=== PATIENT | male | born 1960 | race American Indian/Alaskan Native ===

== ENCOUNTER 2022-02-27 16:47 | Inpatient (IN) | payer MEDICARE, OTHER ==
[~2022-02-27] VITALS: Ht 182.9 cm; Wt 140.2 kg
--- NOTE | 2022-02-28 06:37 | EKG ---
[facility] [address] [facility] [place] [address] Signed Sinus rhythm with short CA with frequent and consecutive premature ventricular complexes with junctional escape complexes Left axis deviation Nonspecific intraventricular block Inferior infarct , age undetermined Anterolateral infarct , age undetermined Abnormal ECG No previous ECGs available Confirmed by RUDY LYLES MD ([id number]) on 02/28/2022 6:36:48 AM Electronically Signed By: RUDY LYLES MD 02/28/22 0637 PATIENT NAME: MANJULA DAVIDSON Electrocardiogram DATE OF : 56 PHYSICIAN: RUDY LYLES MD REPORT #: [id number] REPORT IS CONFIDENTIAL AND NOT TO BE RELEASED WITHOUT AUTHORIZATION
[2022-02-28] MEDS ORDERED: ZYLOPRIM100 MG PO (13:28)
[2022-02-28] MEDS ORDERED: AMITRIPTYLINE H10 MG PO (13:29)
[2022-02-28] MEDS ORDERED: LO-DOSE ASPIRIN81 MG PO (13:29)
[2022-02-28] MEDS ORDERED: CILOSTAZOL50 MG PO (13:30)
[2022-02-28] MEDS ORDERED: DIGOX125 MCG PO (13:30)
[2022-02-28] MEDS ORDERED: VITAMIN D21250 MCG PO (13:31)
[2022-02-28] MEDS ORDERED: ENTRESTO 24 MG1 EACH PO (13:31)
[2022-02-28] MEDS ORDERED: LEVOTHYROXINE75 MC1 PO (13:32)
[2022-02-28] MEDS ORDERED: FERROUS SULFAT325 M2 PO (13:32)
[2022-02-28] MEDS ORDERED: JARDIANCE10 MG PO (13:33)
[2022-02-28] MEDS ORDERED: METOPROLOL SUCC50 MG PO (13:33)
[2022-02-28] MEDS ORDERED: FISH OIL CONC1000 M1 PO (13:33)
[2022-02-28] MEDS ORDERED: TORSEMIDE20 MG PO (13:34)
[2022-02-28] MEDS ORDERED: SIMVASTATIN40 MG PO (13:34)
[2022-02-28] MEDS ORDERED: WARFARIN SODIUM5 MG PO (13:35)
[2022-02-28] MEDS ORDERED: WARFARIN SODIUM1 MG PO (13:36)
[2022-03-05] MEDS ORDERED: SODIUM BICARBO650 MG PO (10:32)
[2022-03-05] MEDS ORDERED: CLINDAMYCIN HC300 MG PO (10:34)
== END 2022-03-05 14:55 | disposition home or self-care (01) | DRG 871 ==
LOC: ED 16:47 → MS 20:01 → CCU 20:01 → MS 03-03 21:55
PROVIDERS: ADMIT Internal Medicine; ATTEND Internal Medicine
PROC: 3E03329 Introduction of Other Anti-infective into Peripheral Vein, Percutaneous Approach (ICD-10-PCS; principal; 2022-02-27)
PROC: 3E033XZ Introduction of Vasopressor into Peripheral Vein, Percutaneous Approach (ICD-10-PCS; 2022-02-27)
DX: A40.0 Sepsis due to streptococcus, group A (principal); G93.41 Metabolic encephalopathy; N17.9 Acute kidney failure, unspecified; I48.20 Chronic atrial fibrillation, unspecified; I42.9 Cardiomyopathy, unspecified; L03.115 Cellulitis of right lower limb; L03.116 Cellulitis of left lower limb; I50.22 Chronic systolic (congestive) heart failure; E87.2 Acidosis; L97.421 Non-pressure chronic ulcer of left heel and midfoot limited to breakdown of skin; Z20.822 Contact with and (suspected) exposure to COVID-19; E11.621 Type 2 diabetes mellitus with foot ulcer; E11.22 Type 2 diabetes mellitus with diabetic chronic kidney disease; R65.20 Severe sepsis without septic shock; N18.9 Chronic kidney disease, unspecified; E11.628 Type 2 diabetes mellitus with other skin complications; E11.51 Type 2 diabetes mellitus with diabetic peripheral angiopathy without gangrene; E86.0 Dehydration; I95.9 Hypotension, unspecified; R11.2 Nausea with vomiting, unspecified; R19.7 Diarrhea, unspecified; Z95.810 Presence of automatic (implantable) cardiac defibrillator; Z91.011 Allergy to milk products; Z79.01 Long term (current) use of anticoagulants; Z79.82 Long term (current) use of aspirin; Z79.899 Other long term (current) drug therapy
CPT/HCPCS: 36415; 51702; 71045; 74176; 80048; 80053; 80202; 81001; 82570; 83036; 83605; 83880; 83930; 83935; 84300; 85025; 85060; 85610; 85730; 86850; 86900; 86901; 87040; 87077; 87186; 87502; 93005; 93010; 97110; 97162; 99285-25; A9270; C9113; C9803; J0692; J0696; J1815; J1940; J2405; J3370; J7030; J7040; J7060; U0003

== ENCOUNTER 2022-07-27 15:18 | Emergency (ER) | payer MEDICARE, OTHER ==
[~2022-07-27] VITALS: Ht 182.9 cm; Wt 127.0 kg
[~2022-07-27 15:18] MED LIST: AMITRIPTYLINE H10 MG PO; CILOSTAZOL50 MG PO; CLINDAMYCIN HC300 MG PO; DIGOX125 MCG PO; ENTRESTO 24 MG1 EACH PO; FERROUS SULFAT325 M2 PO; FISH OIL CONC1000 M1 PO; JARDIANCE10 MG PO; LEVOTHYROXINE75 MC1 PO; LO-DOSE ASPIRIN81 MG PO; METOPROLOL SUCC50 MG PO; SIMVASTATIN40 MG PO; SODIUM BICARBO650 MG PO; TORSEMIDE20 MG PO; VITAMIN D21250 MCG PO; WARFARIN SODIUM1 MG PO; WARFARIN SODIUM5 MG PO; ZYLOPRIM100 MG PO
--- OUTSIDE RECORDS SUMMARY | 2022-07-27 15:24 | XMS ---
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 Naima has no Care Guidelines for this patient. Osvaldo VISIT COUNT (12 MO.) 1 [facility] (ID) 4 [facility] [address] [facility] [place] TOTAL 8 NOTE: Visits indicate total known visits. ED/UCC VISIT TRACKING (12 MO.) 07/27/2022 15:19 [facility] [place] TYPE: Emergency COMPLAINT: - LOW BLOOD SUGAR, WEAK, SHAKY, COLD, VOMITING,COUGH 06/14/2022 12:27 [facility] [place] TYPE: Emergency COMPLAINT: - SHOB DIAGNOSES: - Severe sepsis without septic shock - Cardiac arrest, cause unspecified - Sepsis, unspecified organism - Shortness of breath - Chronic kidney disease, unspecified - Contact with and (suspected) exposure to COVID-19 - Other senior care (current) drug therapy - Allergy to milk products - termite treater helper (current) use of aspirin - End stage heart failure [facility] [place] [facility] COMPLAINT: - fall 04/14/2022 20:[facility] [place] [facility] COMPLAINT: - blood sugar low DIAGNOSES: - Type 2 diabetes mellitus with hypoglycemia without coma 04/07/2022 21:09 [facility] TYPE: Emergency COMPLAINT: - SWOLLEN TESTICAL DIAGNOSES: - Fluid overload, unspecified 03/16/2022 08:10 [facility] [place] ([place]) TYPE: Emergency COMPLAINT: - SOB/VOMITING DIAGNOSES: 1. Shortness of breath 2. Acute kidney failure, unspecified 3. Hypertensive heart disease with heart failure 4. Unspecified atrial fibrillation 5. termite treater helper (current) use of anticoagulants 6. Presence of cardiac pacemaker 7. termite treater helper (current) use of insulin 8. Hyperlipidemia, unspecified 9. Ischemic cardiomyopathy 10. Personal history of malignant neoplasm of testis 11. Type 2 diabetes mellitus with hypoglycemia without coma 12. Heart failure, unspecified 13. Hyperkalemia 14. Acidosis 15. termite treater helper (current) use of aspirin 03/07/2022 22:28 [facility] TYPE: Emergency COMPLAINT: - back pain after fall this AM DIAGNOSES: - Low back pain, unspecified 02/27/2022 16:48 [facility] [place] TYPE: Emergency COMPLAINT: - ALTERED LOC INPATIENT VISIT TRACKING (12 MO.) 06/14/2022 21:29 [facility] [place] TYPE: General Medicine DIAGNOSES: - Cardiac arrest, cause unspecified - ROSC post cardiac arrest, sepsis 04/24/2022 15:12 [facility] TYPE: Inpatient COMPLAINT: - fall DIAGNOSES: - Other hypotension - Other hypotension - Secondary hyperparathyroidism of renal origin - Muscle weakness (generalized) - Fluid overload, unspecified - Hypotension, unspecified - Dependence on renal dialysis - End stage renal disease - Chronic systolic (congestive) heart failure - Fluid overload, unspecified - Nephrotic syndrome with unspecified morphologic changes - Chronic systolic (congestive) heart failure - End stage renal disease - Secondary hyperparathyroidism of renal origin - Hypotension, unspecified - Dependence on renal dialysis - Nephrotic syndrome with unspecified morphologic changes 03/16/2022 18:23 [facility] DIAGNOSES: - Chronic kidney disease, stage 4 (severe) - End stage renal disease - Dependence on renal dialysis - Type 2 diabetes mellitus with hypoglycemia without coma - Type 2 diabetes mellitus with hyperglycemia - Non-pressure chronic ulcer of other part of left foot with other specified severity - Chronic combined systolic (congestive) and diastolic (congestive) heart failure - Acute kidney failure, unspecified - Other fluid overload - Type 2 diabetes mellitus with foot ulcer - Hyperkalemia - alf (current) use of insulin - Non-pressure chronic ulcer of other part of unspecified foot with unspecified severity - Unspecified atrial fibrillation 02/27/2022 20:01 [facility] [place] TYPE: Medical Surgical COMPLAINT: - SEPSIS DIAGNOSES: - Cellulitis of left lower limb - Allergy to milk products - Cellulitis of left lower limb - Non-pressure chronic ulcer of left heel and midfoot limited to breakdown of skin - Sepsis due to streptococcus, group A - Acute kidney failure, unspecified - Severe sepsis without septic shock - Cardiomyopathy, unspecified - Nausea with vomiting, unspecified - Chronic kidney disease, unspecified - Type 2 diabetes mellitus with other skin complications - Chronic systolic (congestive) heart failure - Nausea with vomiting, unspecified - Presence of automatic (implantable) cardiac defibrillator - Diarrhea, unspecified - alf (current) use of aspirin - Hypotension, unspecified - Hypotension, unspecified - Dehydration - Cellulitis of right lower limb - Contact with and (suspected) exposure to COVID-19 - Chronic atrial fibrillation, unspecified - Other senior care (current) drug therapy - Other senior care (current) drug therapy - Allergy to milk products - termite treater helper (current) use of anticoagulants - Sepsis due to streptococcus, group A - Cellulitis of right lower limb - Chronic kidney disease, unspecified - Chronic systolic (congestive) heart failure - Dehydration - Metabolic encephalopathy - Diarrhea, unspecified - Type 2 diabetes mellitus with foot ulcer - Type 2 diabetes mellitus with diabetic peripheral angiopathy without gangrene - Type 2 diabetes mellitus with other skin complications - Cardiomyopathy, unspecified - Type 2 diabetes mellitus with diabetic peripheral angiopathy without gangrene - Acidosis - Contact with and (suspected) exposure to COVID-19 - Metabolic encephalopathy - Chronic atrial fibrillation, unspecified - Type 2 diabetes mellitus with diabetic chronic kidney disease - Sepsis, unspecified organism - termite treater helper (current) use of anticoagulants - Acute kidney failure, unspecified - termite treater helper (current) use of aspirin - Presence of automatic (implantable) cardiac defibrillator - Severe sepsis without septic shock [email or web address]
[2022-07-27] MEDS ORDERED: MIDODRINE HCL10 MG PO (15:56)
[2022-07-27] MEDS ORDERED: SEVELAMER HCL800 MG PO (15:57)
[2022-07-27] MEDS ORDERED: LANTUS100 UNITS/ SUB-Q (15:58)
[2022-07-27] MEDS ORDERED: CARVEDILOL3.125 MG PO (15:58)
[2022-07-27] MEDS ORDERED: LIPITOR20 MG PO (15:59)
[2022-07-27] MEDS ORDERED: ELIQUIS5 MG PO (15:59)
--- NOTE | 2022-07-30 18:22 | EKG ---
[facility] [address] [facility] [place] [address] Signed Atrial fibrillation with rapid ventricular response Left axis deviation Nonspecific intraventricular block Inferior infarct (cited on or before 27-FEB-2022) Anterolateral infarct (cited on or before 27-FEB-2022) Abnormal ECG When compared with ECG of 14-JUN-2022 15:12, Previous ECG has undetermined rhythm, needs review QRS duration has increased T wave inversion no longer evident in Anterior leads Confirmed by Yanira Bell MD () on 07/30/2022 6:22:28 PM Electronically Signed By: YANIRA BELL MD 07/30/221821 PATIENT NAME: MANJULA DAVIDSON Electrocardiogram DATE OF : 56 PHYSICIAN: YANIRA BELL MD REPORT #: [id number] REPORT IS CONFIDENTIAL AND NOT TO BE RELEASED WITHOUT AUTHORIZATION
== END 2022-07-28 09:44 | disposition short-term general hospital (02) ==
LOC: ED 15:18
PROC: 0JH60XZ Insertion of Tunneled Vascular Access Device into Chest Subcutaneous Tissue and Fascia, Open Approach (ICD-10-PCS; principal; 2022-07-27)
PROC: 0T9B70Z Drainage of Bladder with Drainage Device, Via Natural or Artificial Opening (ICD-10-PCS; 2022-07-27)
DX: A41.89 Other specified sepsis (principal); I48.91 Unspecified atrial fibrillation; G93.40 Encephalopathy, unspecified; N39.0 Urinary tract infection, site not specified; B97.4 Respiratory syncytial virus as the cause of diseases classified elsewhere; I10 Essential (primary) hypertension; E11.9 Type 2 diabetes mellitus without complications; Z20.822 Contact with and (suspected) exposure to COVID-19; Z91.011 Allergy to milk products; Z79.899 Other long term (current) drug therapy; Z79.4 Long term (current) use of insulin; Z79.82 Long term (current) use of aspirin; Z79.01 Long term (current) use of anticoagulants
CPT/HCPCS: 36415; 36556; 51701; 71045; 80053; 81001; 82803; 83605; 83880; 84484; 85025; 85610; 85730; 87040; 87088; 87502; 93005; 93010; 99285-25; A9270; C9803; J0692; J2250; J2270; J3370; J7121; U0003

== ENCOUNTER 2022-09-08 11:37 | Emergency (ER) | payer MEDICARE, OTHER ==
[~2022-09-08] VITALS: Ht 182.9 cm; Wt 127.3 kg
[~2022-09-08 11:37] MED LIST changes: +CARVEDILOL3.125 MG PO; +ELIQUIS5 MG PO; +LANTUS100 UNITS/ SUB-Q; +LIPITOR20 MG PO; +MIDODRINE HCL10 MG PO; +SEVELAMER HCL800 MG PO
--- OUTSIDE RECORDS SUMMARY | 2022-09-08 11:47 | XMS ---
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 Naima has no Care Guidelines for this patient. Osvaldo VISIT COUNT (12 MO.) 1 [facility] (ID) 4 [facility] [address] [facility] [address] [place] TOTAL 9 NOTE: Visits indicate total known visits. ED/UCC VISIT TRACKING (12 MO.) 09/08/2022 11:38 [facility] [place] TYPE: Emergency COMPLAINT: - CHEST PAIN 07/27/2022 15:19 [facility] [place] TYPE: Emergency COMPLAINT: - LOW BLOOD SUGAR, WEAK, SHAKY, COLD, VOMITING,COUGH DIAGNOSES: - Other termite technician (current) drug therapy - Type 2 diabetes mellitus without complications - Respiratory syncytial virus as the cause of diseases classified elsewhere - Weakness - Encephalopathy, unspecified - custodial (current) use of anticoagulants - Allergy to milk products - Other specified sepsis - Unspecified atrial fibrillation - custodial (current) use of insulin - parts counterman (current) use of aspirin - Contact with and (suspected) exposure to COVID-19 - Urinary tract infection, site not specified - Essential (primary) hypertension 06/14/2022 12:27 [facility] [place] TYPE: Emergency COMPLAINT: - SHOB DIAGNOSES: - End stage heart failure - Severe sepsis without septic shock - Cardiac arrest, cause unspecified - Sepsis, unspecified organism - Shortness of breath - Chronic kidney disease, unspecified - Contact with and (suspected) exposure to COVID-19 - Other termite technician (current) drug therapy - Allergy to milk products - parts counterman (current) use of aspirin 04/20/2022 09:[address] [facility] TYPE: Emergency COMPLAINT: - fall 04/14/2022 20:[address] [facility] TYPE: Emergency COMPLAINT: - blood sugar low DIAGNOSES: - Type 2 diabetes mellitus with hypoglycemia without coma 04/07/2022 21:[address] [facility] TYPE: Emergency COMPLAINT: - SWOLLEN TESTICAL DIAGNOSES: - Fluid overload, unspecified 03/16/2022 08:10 [facility] [place] ([place]) TYPE: Emergency COMPLAINT: - SOB/VOMITING DIAGNOSES: 1. Shortness of breath 2. Acute kidney failure, unspecified 3. Hypertensive heart disease with heart failure 4. Unspecified atrial fibrillation 5. custodial (current) use of anticoagulants 6. Presence of cardiac pacemaker 7. parts counterman (current) use of insulin 8. Hyperlipidemia, unspecified 9. Ischemic cardiomyopathy 10. Personal history of malignant neoplasm of testis 11. Type 2 diabetes mellitus with hypoglycemia without coma 12. Heart failure, unspecified 13. Hyperkalemia 14. Acidosis 15. parts counterman (current) use of aspirin 03/07/2022 22:[address] [facility] TYPE: Emergency COMPLAINT: - back pain after fall this AM DIAGNOSES: - Low back pain, unspecified 02/27/2022 16:48 [facility] TYPE: Emergency COMPLAINT: - ALTERED LOC INPATIENT VISIT TRACKING (12 MO.) 06/14/2022 21:[facility] [place] [place] TYPE: General Medicine DIAGNOSES: - Cardiac arrest, cause unspecified - ROSC post cardiac arrest, sepsis 04/24/2022 15:[address] [facility] TYPE: Inpatient COMPLAINT: - fall DIAGNOSES: - Hypotension, unspecified - Dependence on renal dialysis - Nephrotic syndrome with unspecified morphologic changes - Other hypotension - Other hypotension - [...] disease - Secondary hyperparathyroidism of renal origin 03/16/2022 18:[address] [place] TYPE: Oncology DIAGNOSES: - Non-pressure chronic ulcer of other part of unspecified foot with unspecified severity - Unspecified atrial fibrillation - Chronic kidney disease, stage 4 (severe) [...] mellitus with foot ulcer - Hyperkalemia - parts counterman (current) use of insulin 02/27/2022 20:01 [facility] [place] TYPE: Medical Surgical COMPLAINT: - SEPSIS DIAGNOSES: - Metabolic encephalopathy - Chronic atrial fibrillation, unspecified - Type 2 diabetes mellitus with diabetic chronic kidney disease - Sepsis, unspecified organism - parts counterman (current) use of anticoagulants - Acute kidney failure, unspecified - parts counterman (current) use of aspirin - Presence of automatic (implantable) cardiac defibrillator - Severe sepsis without septic shock - Cellulitis of left lower limb - [...] (implantable) cardiac defibrillator - Diarrhea, unspecified - custodial (current) use of aspirin - Hypotension, unspecified - Hypotension, unspecified - Dehydration - Cellulitis of right lower limb - Contact with and (suspected) exposure to COVID-19 - Chronic atrial fibrillation, unspecified - Other senior living (current) drug therapy - Other senior living (current) drug therapy - Allergy to milk products - parts counterman (current) use of anticoagulants - Sepsis due [...] Contact with and (suspected) exposure to COVID-19 [id number]
--- NOTE | 2022-09-09 20:42 | EKG ---
[facility] [address] [facility] [place] [address] Signed Atrial fibrillation with artifact Left axis deviation Nonspecific intraventricular block Inferior infarct , age undetermined Anterolateral infarct , age undetermined Abnormal ECG Confirmed by Yanira Bell MD () on 09/09/2022 8:41:52 PM Electronically Signed By: YANIRA BELL MD 09/09/222041 PATIENT NAME: MANJULA DAVIDSON Electrocardiogram DATE OF : 56 PHYSICIAN: YANIRA BELL MD REPORT #: [id number] REPORT IS CONFIDENTIAL AND NOT TO BE RELEASED WITHOUT AUTHORIZATION
== END 2022-09-08 16:30 | disposition home or self-care (01) ==
LOC: ED 11:37
DX: R07.89 Other chest pain (principal); I11.0 Hypertensive heart disease with heart failure; I50.9 Heart failure, unspecified; E11.9 Type 2 diabetes mellitus without complications; N19 Unspecified kidney failure; J45.909 Unspecified asthma, uncomplicated; Z20.822 Contact with and (suspected) exposure to COVID-19; Z91.011 Allergy to milk products; Z79.899 Other long term (current) drug therapy; Z79.4 Long term (current) use of insulin; Z79.82 Long term (current) use of aspirin; Z79.01 Long term (current) use of anticoagulants
CPT/HCPCS: 36415; 71045; 80053; 83735; 84484; 85007; 85025; 87502; 93005; 93010; 99285-25; A9270; C9803; U0003

== ENCOUNTER 2022-10-04 16:38 | Emergency (ER) | payer MEDICARE, OTHER ==
[~2022-10-04] VITALS: Ht 182.9 cm; Wt 108.9 kg
--- OUTSIDE RECORDS SUMMARY | 2022-10-04 16:46 | XMS ---
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 Kimberlee. [facility] (12 MO.) [facility] [address] TOTAL 10 NOTE: Visits indicate total known visits. ED/UCC VISIT TRACKING (12 MO.) 10/04/2022 16:39 [facility] [place] TYPE: Emergency COMPLAINT: - CHEST PAIN 09/08/2022 11:38 [facility] [place] TYPE: Emergency COMPLAINT: - CHEST PAIN DIAGNOSES: - Chest pain, unspecified - Other fci (current) drug therapy - Type 2 diabetes mellitus without complications - senior care (current) use of aspirin - Heart failure, unspecified - exterminator termite (current) use of anticoagulants - Hypertensive heart disease with heart failure - Unspecified asthma, uncomplicated - exterminator termite (current) use of insulin - Allergy to milk products - Other chest pain - Unspecified kidney failure - Contact with and (suspected) exposure to COVID-19 07/27/2022 15:19 [facility] [place] TYPE: Emergency COMPLAINT: - LOW BLOOD SUGAR, WEAK, SHAKY, COLD, VOMITING,COUGH DIAGNOSES: - Allergy to milk products - Other specified sepsis - Unspecified atrial fibrillation - exterminator termite (current) use of insulin - senior care (current) use of aspirin - Contact with and (suspected) exposure to COVID-19 - Urinary tract infection, site not specified - Essential (primary) hypertension - Other termite control service representative (current) drug therapy - Type 2 diabetes mellitus without complications - Respiratory syncytial virus as the cause of diseases classified elsewhere - Weakness - Encephalopathy, unspecified - exterminator termite (current) use of anticoagulants 06/14/2022 12:[address] [facility] [address] [facility] TYPE: Emergency COMPLAINT: - SHOB DIAGNOSES: - Shortness of breath - Chronic kidney disease, unspecified - Contact with and (suspected) exposure to COVID-19 - Other fci (current) drug therapy - Allergy to milk products - senior care (current) use of aspirin - End stage heart failure - Severe sepsis without septic shock - Cardiac arrest, cause unspecified - Sepsis, unspecified organism 04/20/2022 09:41 [facility] TYPE: Emergency COMPLAINT: - fall 04/14/2022 20:19 [facility] TYPE: Emergency COMPLAINT: - blood sugar low DIAGNOSES: - Type 2 diabetes mellitus with hypoglycemia without coma 04/07/2022 21:09 [facility] TYPE: Emergency COMPLAINT: - SWOLLEN TESTICAL DIAGNOSES: - Fluid overload, unspecified 03/16/2022 08:10 [facility] [place] ([place] TYPE: Emergency COMPLAINT: - SOB/VOMITING DIAGNOSES: 1. Shortness of breath 2. Acute kidney failure, unspecified 3. Hypertensive heart disease with heart failure 4. Unspecified atrial fibrillation 5. senior care (current) use of anticoagulants 6. Presence of cardiac pacemaker 7. exterminator termite (current) use of insulin 8. Hyperlipidemia, unspecified 9. Ischemic cardiomyopathy 10. Personal history of malignant neoplasm of testis 11. Type 2 diabetes mellitus with hypoglycemia without coma 12. Heart failure, unspecified 13. Hyperkalemia 14. Acidosis 15. senior care (current) use of aspirin 03/07/2022 22:28 [facility] TYPE: Emergency COMPLAINT: - back pain after fall this AM DIAGNOSES: - Low back pain, unspecified 02/27/2022 16:[address] [facility] [address] [place] TYPE: Emergency COMPLAINT: - ALTERED LOC INPATIENT VISIT TRACKING (12 MO.) 06/14/2022 21:[facility] [place] TYPE: General Medicine DIAGNOSES: - ROSC post cardiac arrest, sepsis - Cardiac arrest, cause unspecified 04/24/2022 [facility] COMPLAINT: - fall DIAGNOSES: - Fluid overload, unspecified - Hypotension, unspecified [...] of renal origin - Muscle weakness (generalized) 03/16/2022 18:23 [facility] [place] TYPE: Oncology DIAGNOSES: - Type 2 diabetes mellitus with hyperglycemia - Non-pressure chronic ulcer of other part of left foot with other specified severity - Chronic combined systolic (congestive) and diastolic (congestive) heart failure - Acute kidney failure, unspecified - Other fluid overload - Type 2 diabetes mellitus with foot ulcer - Hyperkalemia - senior care (current) use of insulin - Non-pressure chronic ulcer of other part of unspecified foot with unspecified severity - Unspecified atrial fibrillation - Chronic kidney disease, stage 4 (severe) - End stage renal disease - Dependence on renal dialysis - Type 2 diabetes mellitus with hypoglycemia without coma 02/27/2022 20:01 [facility] [place] TYPE: Medical Surgical COMPLAINT: - SEPSIS DIAGNOSES: - Nausea with vomiting, unspecified - Presence of automatic (implantable) cardiac defibrillator - Diarrhea, unspecified - senior care (current) use of aspirin - Hypotension, unspecified - Hypotension, unspecified - Dehydration - Cellulitis of right lower limb - Contact with and (suspected) exposure to COVID-19 - Chronic atrial fibrillation, unspecified - Other termite control service representative (current) drug therapy - Other fci (current) drug therapy - Allergy to milk products - exterminator termite (current) use of anticoagulants - Sepsis due to streptococcus, group A - Cellulitis of right lower limb - Chronic kidney disease, unspecified - Chronic systolic (congestive) heart failure - Dehydration - Metabolic encephalopathy - Diarrhea, unspecified - Cardiomyopathy, unspecified - Type 2 diabetes mellitus with foot ulcer - Type 2 diabetes mellitus with diabetic peripheral angiopathy without gangrene - Type 2 diabetes mellitus with other skin complications - Type 2 diabetes mellitus with diabetic peripheral angiopathy without gangrene - Acidosis - Contact with and (suspected) exposure to COVID-19 - Metabolic encephalopathy - Chronic atrial fibrillation, unspecified - Type 2 diabetes mellitus with diabetic chronic kidney disease - Sepsis, unspecified organism - senior care (current) use of anticoagulants - Acute kidney failure, unspecified - senior care (current) use of aspirin - Presence of [...] complications - Chronic systolic (congestive) heart failure [id number]
[2022-10-04] MEDS ORDERED: MIRTAZAPINE15 MG PO (16:58)
--- NOTE | 2022-10-06 16:40 | EKG ---
[facility] [address] [facility] [place] [address] Signed Atrial fibrillation with premature ventricular or aberrantly conducted complexes Left axis deviation Nonspecific intraventricular block Inferior infarct (cited on or before 27-FEB-2022) Anterolateral infarct (cited on or before 27-FEB-2022) Abnormal ECG When compared with ECG of 08-SEP-2022 11:42, QRS duration has increased Confirmed by KIMBERLY SETH MD ([id number]) on 10/06/2022 4:40:08 PM Electronically Signed By: KIMBERLY SETH MD 10/06/22 1640 PATIENT NAME: MANJULA DAVIDSON Electrocardiogram DATE OF : 56 PHYSICIAN: KIMBERLY SETH MD REPORT #: [id number] REPORT IS CONFIDENTIAL AND NOT TO BE RELEASED WITHOUT AUTHORIZATION
--- NOTE | 2022-10-06 16:40 | EKG ---
[facility] [address] [facility] [place] [address] Signed Atrial fibrillation Left axis deviation Nonspecific intraventricular block Inferior infarct (cited on or before 27-FEB-2022) Anterolateral infarct (cited on or before 27-FEB-2022) Abnormal ECG When compared with ECG of 04-OCT-2022 16:41, (Unconfirmed) No significant change was found Confirmed by KIMBERLY SETH MD ([id number]) on 10/06/2022 4:40:45 PM Electronically Signed By: KIMBERLY SETH MD 10/06/22 1640 PATIENT NAME: MANJULA DAVIDSON Electrocardiogram DATE OF : 56 PHYSICIAN: KIMBERLY SETH MD REPORT #: [id number] REPORT IS CONFIDENTIAL AND NOT TO BE RELEASED WITHOUT AUTHORIZATION
== END 2022-10-04 20:18 | disposition home or self-care (01) ==
LOC: ED 16:38
DX: R07.2 Precordial pain (principal); E11.9 Type 2 diabetes mellitus without complications; I11.0 Hypertensive heart disease with heart failure; M19.90 Unspecified osteoarthritis, unspecified site; I50.9 Heart failure, unspecified; J45.909 Unspecified asthma, uncomplicated; I25.2 Old myocardial infarction; Z88.8 Allergy status to other drugs, medicaments and biological substances; Z79.899 Other long term (current) drug therapy; Z79.82 Long term (current) use of aspirin
CPT/HCPCS: 36415; 71045; 80053; 84484; 85025; 85379; 85610; 93005; 93010; 99285-25

== ENCOUNTER 2022-11-03 05:32 | Emergency (ER) | payer MEDICARE, OTHER ==
[~2022-11-03] VITALS: Ht 188 cm; Wt 123.0 kg
[~2022-11-03 05:32] MED LIST changes: +MIRTAZAPINE15 MG PO
--- OUTSIDE RECORDS SUMMARY | 2022-11-03 05:40 | XMS ---
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 [facility].D. V[facility]IT [facility] ([address] [facility] [address] TOTAL 11 NOTE: Visits indicate total known visits. ED/UCC VISIT TRACKING (12 MO.) 11/03/2022 05:32 [facility] [place] TYPE: Emergency COMPLAINT: - PORT ISSUE 10/04/2022 16:39 [facility] [place] TYPE: Emergency COMPLAINT: - CHEST PAIN DIAGNOSES: - Chest pain, unspecified - Heart failure, unspecified - Hypertensive heart disease with heart failure - Old myocardial infarction - Precordial pain - Other usp (current) drug therapy - Unspecified asthma, uncomplicated - Allergy status to other drugs, medicaments and biological substances - hourly shift (current) use of aspirin - Unspecified osteoarthritis, unspecified site - Type 2 diabetes mellitus without complications 09/08/2022 11:38 [facility] [place] TYPE: Emergency COMPLAINT: - CHEST PAIN DIAGNOSES: - hourly shift (current) use of insulin - Allergy to milk products - Other chest pain - Unspecified kidney failure - Contact with and (suspected) exposure to COVID-19 - Chest pain, unspecified - 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 - Type 2 diabetes mellitus without complications - group home (current) use of aspirin - Heart failure, unspecified - hourly shift (current) use of anticoagulants - Hypertensive heart disease with heart failure - Unspecified asthma, uncomplicated 07/27/2022 15:19 [facility] [place] TYPE: Emergency COMPLAINT: - LOW BLOOD SUGAR, WEAK, SHAKY, COLD, VOMITING,COUGH DIAGNOSES: - Type 2 diabetes mellitus without complications - Respiratory syncytial virus as the cause of diseases classified elsewhere - Weakness - Encephalopathy, unspecified - group home (current) use of anticoagulants - Allergy to milk products - Other specified sepsis - Unspecified atrial fibrillation - hourly shift (current) use of insulin - group home (current) use of aspirin - Contact with and (suspected) exposure to COVID-19 - Urinary tract infection, site not specified - Essential (primary) hypertension - Other usp (current) drug therapy 06/14/2022 12:27 [facility] [place] TYPE: Emergency COMPLAINT: - SHOB DIAGNOSES: - Severe sepsis without septic shock - Cardiac arrest, cause unspecified - Sepsis, unspecified organism - Shortness of breath - Chronic kidney disease, unspecified - Contact with and (suspected) exposure to COVID-19 - 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 - Allergy to milk products - group home (current) use of aspirin - End stage heart failure 04/20/2022 09:41 [facility] TYPE: Emergency COMPLAINT: - fall 04/14/2022 20:19 [facility] TYPE: Emergency COMPLAINT: - blood sugar low DIAGNOSES: - Type 2 diabetes mellitus with hypoglycemia without coma 04/07/2022 21:09 [facility] TYPE: Emergency COMPLAINT: - SWOLLEN TESTICAL DIAGNOSES: - Fluid overload, unspecified [facility] COMPLAINT: - SOB/VOMITING DIAGNOSES: 1. Shortness of breath 2. Acute kidney failure, unspecified 3. Hypertensive heart disease with heart failure 4. Unspecified atrial fibrillation 5. hourly shift (current) use of anticoagulants 6. Presence of cardiac pacemaker 7. hourly shift (current) use of insulin 8. Hyperlipidemia, unspecified 9. Ischemic cardiomyopathy 10. Personal history of malignant neoplasm of testis 11. Type 2 diabetes mellitus with hypoglycemia without coma 12. Heart failure, unspecified 13. Hyperkalemia 14. Acidosis 15. hourly shift (current) use of aspirin 03/07/2022 22:28 [facility] TYPE: Emergency COMPLAINT: - back pain after fall this AM DIAGNOSES: - Low back pain, unspecified 02/27/2022 16:48 [facility] TYPE: Emergency COMPLAINT: - ALTERED LOC INPATIENT VISIT TRACKING (12 MO.) 06/14/2022 21:29 [facility] [place] TYPE: General Medicine DIAGNOSES: - Cardiac arrest, cause unspecified - ROSC post cardiac arrest, sepsis 04/24/2022 15:12 [facility] TYPE: Inpatient COMPLAINT: - fall DIAGNOSES: - Nephrotic syndrome with unspecified morphologic changes [...] Hypotension, unspecified - Dependence on renal dialysis [facility] [place] [facility] DIAGNOSES: - Unspecified atrial fibrillation - Chronic kidney [...] mellitus with foot ulcer - Hyperkalemia - hourly shift (current) use of insulin - Non-pressure chronic ulcer of other part of unspecified foot with unspecified severity 02/27/2022 20:[address] [facility] [place] [place] TYPE: Medical Surgical COMPLAINT: - SEPSIS DIAGNOSES: - Severe sepsis without septic shock - hourly shift (current) use of aspirin - Presence of automatic (implantable) cardiac defibrillator - Cellulitis of left lower limb - Allergy to milk products - Cellulitis of left lower limb - Acute kidney failure, unspecified - Non-pressure chronic ulcer of left heel and midfoot limited to breakdown of skin - Sepsis due to streptococcus, group A - Severe sepsis without septic shock - Cardiomyopathy, unspecified - Nausea with vomiting, unspecified - Chronic kidney disease, unspecified - Type 2 diabetes mellitus with other skin complications - Chronic systolic (congestive) heart failure - Diarrhea, unspecified - Nausea with vomiting, unspecified - Presence of automatic (implantable) cardiac defibrillator - group home (current) use of aspirin - Hypotension, unspecified - Hypotension, unspecified - Contact with and (suspected) exposure to COVID-19 - Dehydration - Cellulitis of right lower limb - Chronic atrial fibrillation, unspecified - 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
== END 2022-11-03 07:35 | disposition short-term general hospital (02) ==
LOC: ED 05:32
DX: T82.49XA Other complication of vascular dialysis catheter, initial encounter (principal); I13.0 Hypertensive heart and chronic kidney disease with heart failure and stage 1 through stage 4 chronic kidney disease, or unspecified chronic kidney disease; E11.22 Type 2 diabetes mellitus with diabetic chronic kidney disease; I50.9 Heart failure, unspecified; N18.9 Chronic kidney disease, unspecified; I25.2 Old myocardial infarction; J45.909 Unspecified asthma, uncomplicated; Z20.822 Contact with and (suspected) exposure to COVID-19; Z95.0 Presence of cardiac pacemaker; Z87.891 Personal history of nicotine dependence; Z91.011 Allergy to milk products; Z79.899 Other long term (current) drug therapy; Z79.4 Long term (current) use of insulin; Z79.82 Long term (current) use of aspirin; Z79.01 Long term (current) use of anticoagulants; Y83.1 Surgical operation with implant of artificial internal device as the cause of abnormal reaction of the patient, or of later complication, without mention of misadventure at the time of the procedure
CPT/HCPCS: 36415; 71045; 80053; 85025; 85610; 85730; 86850; 86900; 86901; 99285-25; C9803; U0003